=== PATIENT | female | born 2000 | race Caucasian/White ===

== ENCOUNTER 2023-06-29 22:04 | Emergency (ER) | payer SELFPAY ==
[~2023-06-29] VITALS: Ht 165.1 cm; Wt 86.0 kg
[2023-06-29 23:43] VITALS: BP 109/57; PULSE 85; RESP 18; TEMP 97.9; O2SAT 99
[2023-06-30 00:42] LABS: BASOPHILS % 0.4 % (0.0-2.0); HEMATOCRIT. 31.6 % (36.0-48.0); HEMOGLOBIN. 9.4 g/dL (12.0-16.0); LYMPHOCYTES % 33.8 % (20.0-50.0); MEAN CORPUSCULAR HEMOGLOBIN 19.4 pg (28.0-32.0); MEAN CORPUSCULAR HGB CONC 29.7 g/dL (31.0-37.0); MEAN CORPUSCULAR VOLUME 65.4 fL (81.0-99.0); MEAN PLATELET VOLUME 8.8 fl (7.4-10.4); MONOCYTES % 8.2 % (2.0-8.0); NEUTROPHILS % 55.6 % (40.0-76.0); PLATELET 356 x1000/uL (130-400); RED BLOOD CELL COUNT 4.83 mill/uL (4.2-5.4); RED CELL DISTRIBUTION WIDTH 20.1 % (11.6-14.6); WHITE BLOOD COUNT 7.6 x1000/uL (4.5-11.0)
[2023-06-30 00:45] LABS: ADD RBC MORPHOLOGY YES; DIFFERENTIAL COMMENT 1
[2023-06-30 02:11] LABS: ALANINE AMINOTRANSFERASE 9 IU/L (10-49); ALBUMIN 3.7 g/dL (3.2-4.8); ASPARTATE AMINOTRANSFERASE 11 IU/L (<34); B-HCG QUANTITATIVE 67059 mIU/mL (<3); BILIRUBIN TOTAL 0.2 mg/dL (0.1-1.0); CALCIUM 8.8 mg/dL (8.7-10.4); CARBON DIOXIDE 26 mEq/L (21-32); CHLORIDE 106 mEq/L (98-107); CREATININE 0.5 mg/dL (0.6-1.0); GLUCOSE 89 mg/dL (70-105); POTASSIUM 3.7 mEq/L (3.5-5.1); PROTEIN TOTAL 7.3 g/dL (6.0-8.3); SODIUM 138 mEq/L (136-145); UREA NITROGEN BLOOD 12 mg/dL (9-23)
[2023-06-30] MEDS ORDERED: ONDANSETRON 4MG ODT PO ONE (02:15)
[2023-06-30] MEDS ORDERED: FAMOTIDINE 20MG TABLET PO ONE (02:15)
[2023-06-30] MEDS ORDERED: ACETAMINOPHEN 325MG TABLET PO ONE ×2 (02:15→04:30)
[2023-06-30] MEDS ORDERED: ACETAMINOPHEN 325MG TABLET PO NR (04:30)
[2023-06-30] MEDS ORDERED: ONDANSETRON 4MG ODT PO NR (04:30)
[2023-06-30] MEDS ORDERED: FAMOTIDINE 20MG TABLET PO NR (04:30)
[2023-06-30] MEDS ORDERED: DOXY1TAB3 MT (04:55)
[2023-06-30 07:58] LABS: HYPOCHROMASIA 1+; MICROCYTOSIS 2+; PLATELET ESTIMATE NORMAL
== END 2023-06-30 05:03 | disposition home or self-care (01) ==
LOC: ER 22:04
DX: O46.91 Antepartum hemorrhage, unspecified, first trimester (principal); Z3A.01 Less than 8 weeks gestation of pregnancy; Z98.890 Other specified postprocedural states
CPT/HCPCS: 36415; 76801; 80053; 84702; 85025; 86850; 86900; 99284